=== PATIENT | male | born 2000 | race Caucasian/White ===

== ENCOUNTER 2023-04-30 00:13 | Emergency (ER) | payer OTHER ==
[~2023-04-30] VITALS: Ht 167.6 cm; Wt 63.6 kg
[2023-04-30 00:26] VITALS: TEMP 97.8
[2023-04-30] MEDS ORDERED: EPIPEN 2-PAK1 MG/ML IM ×2 (00:41→11:27)
[2023-04-30 01:23] VITALS: BP 125/80; PULSE 80
== END 2023-04-30 01:27 | disposition home or self-care (01) ==
LOC: COL.ER 00:13
DX: T78.1XXA Other adverse food reactions, not elsewhere classified, initial encounter (principal); X58.XXXA Exposure to other specified factors, initial encounter
CPT/HCPCS: J7512